=== PATIENT | female | born 1970 | race Caucasian/White ===

== ENCOUNTER 2025-01-14 16:35 | Emergency (ER) | payer MEDICARE, OTHER ==
[~2025-01-14] VITALS: Ht 172.7 cm; Wt 147.4 kg
== END 2025-01-14 20:19 | disposition home or self-care (01) ==
LOC: ER 16:35
DX: M79.661 Pain in right lower leg (principal); M79.651 Pain in right thigh; M25.551 Pain in right hip; W07.XXXA Fall from chair, initial encounter; Z91.030 Bee allergy status; Z88.8 Allergy status to other drugs, medicaments and biological substances; Z91.048 Other nonmedicinal substance allergy status
CPT/HCPCS: 73502; 73562-RT; 93971; 99284-25